=== PATIENT | male | born 1985 | race Caucasian/White ===

== ENCOUNTER 2023-03-18 12:55 | Inpatient (IN) | payer OTHER ==
[2023-03-18 13:30] VITALS: BMI 44.9
[2023-03-18] MEDS ORDERED: MAG HYDROX/AL HYDROX/SIMETH 30 ML UNIT-DOSE CUP PO PRN (15:25)
[2023-03-18] MEDS ORDERED: MAGNESIUM HYDROX 2400MG/30ML ORAL SUSPENSION 30 ML CUP PO PRN (15:25)
[2023-03-18] MEDS ORDERED: BENZOCAINE/MENTHOL (CHLORASEPTIC ) LOZENGE MM PRN (15:25)
[2023-03-18] MEDS ORDERED: NALOXONE HCL 0.4 MG/ML VIAL IM PRN (15:25)
[2023-03-18] MEDS ORDERED: BISMUTH SUBSALICYLATE 524 MG/30 ML PO PRN (15:25)
[2023-03-18] MEDS ORDERED: DICYCLOMINE HCL 10 MG CAPSULE PO PRN (15:25)
[2023-03-18] MEDS ORDERED: LOPERAMIDE HCL 2 MG CAPSULE PO PRN (15:25)
[2023-03-18] MEDS ORDERED: ONDANSETRON *ODT* 4 MG TABLET SL PRN (15:25)
[2023-03-18] MEDS ORDERED: NICOTINE POLACRILEX 2 MG GUM BUC PRN (15:25)
[2023-03-18] MEDS ORDERED: BENZONATATE 200 MG CAPSULE PO PRN (15:25)
[2023-03-18] MEDS ORDERED: ACETAMINOPHEN 325 MG TABLET (FP) PO PRN (15:25)
[2023-03-18] MEDS ORDERED: IBUPROFEN 400 MG TABLET (FP) PO PRN (15:25)
[2023-03-18] MEDS ORDERED: guaiFENesin 600 MG TABLET.ER (FP) PO PRN (15:25)
[2023-03-18] MEDS ORDERED: POLYETHYLENE GLYCOL (HEALTHYLAX) 3350 17 GM PACKET PO PRN (15:25)
[2023-03-18] MEDS ORDERED: NALOXONE HCL (KLOXXADO) 8 MG SPRAY NS PRN (15:25)
[2023-03-18] MEDS: METHOCARBAMOL 500 MG TABLET PO PRN (22:31)
[2023-03-18] MEDS: hydrOXYzine PAMOATE 25 MG CAPSULE (FP) PO PRN (22:31)
[2023-03-18] MEDS: MELATONIN 5 MG TABLETS PO SCH (22:31)
[2023-03-18] MEDS: THIAMINE HCL 100 MG TABLET (FP) PO SCH (22:31)
[2023-03-19] MEDS: PRENATAL VITAMINS W/ FOLIC ACID TABLET (FP) PO SCH (10:21)
[2023-03-19] MEDS: NICOTINE 14 MG/24 HOURS TOPICAL PATCH TD SCH (10:22)
[2023-03-19] MEDS: hydrOXYzine PAMOATE 25 MG CAPSULE (FP) PO PRN ×2 (10:22→22:19)
[2023-03-19] MEDS: METHOCARBAMOL 500 MG TABLET PO PRN ×2 (10:22→22:18)
[2023-03-19 10:25] LABS: HEMATOCRIT 38.2 % (35.4-49); HEMOGLOBIN 12.9 GM/dL (11.7-16.9); MCH 30.9 pg (25.7-33.7); MCHC 33.8 g/dl (32.0-35.9); MEAN CELL VOLUME 91.5 fl (80-96); MEAN PLT VOLUME 7.9 fl (7.5-11.1); PLATELET COUNT 297 10^3/uL (134-434); RBC 4.17 M/mm3 (4.00-5.60); RDW 13.4 % (11.9-15.9); WHITE BLOOD COUNT 5.7 K/mm3 (4.0-10.0)
[2023-03-19] MEDS ORDERED: chlordiazePOXIDE HCL 25 MG CAPSULE PO PRN (10:27)
[2023-03-19 11:05] LABS: CHLORIDE 109 mmol/L (98-107); POTASSIUM 4.2 mmol/L (3.5-5.1); SODIUM 139 mmol/L (136-145)
[2023-03-19 11:11] LABS: CALCIUM 8.4 mg/dL (8.5-10.1)
[2023-03-19 11:12] LABS: ALBUMIN 3.3 g/dl (3.4-5.0); ANION GAP 3 mmol/L (4-13); BLOOD UREA NITROGEN 12.7 mg/dL (7-18); CO2 27 mmol/L (21-32); GLUCOSE,RANDOM 114 mg/dL (74-106)
[2023-03-19 11:14] LABS: CREATININE 0.7 mg/dL (0.55-1.3); SGPT/ALT 21 U/L (13-61)
[2023-03-19 11:15] LABS: BILIRUBIN,TOTAL 0.5 mg/dL (0.2-1); SGOT/AST 16 U/L (15-37); TOT PROT 6.3 g/dl (6.4-8.2)
[2023-03-19 11:16] LABS: ALK PHOS 78 U/L (45-117)
[2023-03-19] MEDS: chlordiazePOXIDE HCL 25 MG CAPSULE PO SCH ×3 (11:40→22:19)
[2023-03-19] MEDS: THIAMINE HCL 100 MG TABLET (FP) PO SCH (22:18)
[2023-03-19] MEDS: lamoTRIgine 25 MG TABLET PO SCH (22:18)
[2023-03-19] MEDS: MELATONIN 5 MG TABLETS PO SCH (22:18)
[2023-03-19] MEDS: traZODone HCL 50 MG TABLET (FP) PO SCH (22:19)
[2023-03-20] MEDS: chlordiazePOXIDE HCL 25 MG CAPSULE PO SCH ×4 (05:52→22:37)
[2023-03-20] MEDS: PRENATAL VITAMINS W/ FOLIC ACID TABLET (FP) PO SCH (10:48)
[2023-03-20] MEDS: NICOTINE 14 MG/24 HOURS TOPICAL PATCH TD SCH (10:50)
[2023-03-20] MEDS: METHOCARBAMOL 500 MG TABLET PO PRN (22:33)
[2023-03-20] MEDS: traZODone HCL 50 MG TABLET (FP) PO SCH (22:33)
[2023-03-20] MEDS: lamoTRIgine 25 MG TABLET PO SCH (22:33)
[2023-03-20] MEDS: MELATONIN 5 MG TABLETS PO SCH (22:33)
[2023-03-20] MEDS: THIAMINE HCL 100 MG TABLET (FP) PO SCH (22:33)
[2023-03-21] MEDS: chlordiazePOXIDE HCL 25 MG CAPSULE PO SCH ×4 (05:55→22:02)
[2023-03-21] MEDS: PRENATAL VITAMINS W/ FOLIC ACID TABLET (FP) PO SCH (10:31)
[2023-03-21] MEDS: NICOTINE 14 MG/24 HOURS TOPICAL PATCH TD SCH (10:32)
[2023-03-21] MEDS: lamoTRIgine 25 MG TABLET PO SCH (22:01)
[2023-03-21] MEDS: MELATONIN 5 MG TABLETS PO SCH (22:01)
[2023-03-21] MEDS: THIAMINE HCL 100 MG TABLET (FP) PO SCH (22:01)
[2023-03-21] MEDS: traZODone HCL 50 MG TABLET (FP) PO SCH (22:01)
[2023-03-22] MEDS ORDERED: chlordiazePOXIDE HCL 10 MG CAPSULE PO PRN
[2023-03-22] MEDS: chlordiazePOXIDE HCL 10 MG CAPSULE PO SCH ×4 (05:55→22:07)
[2023-03-22] MEDS: PRENATAL VITAMINS W/ FOLIC ACID TABLET (FP) PO SCH (10:21)
[2023-03-22] MEDS: NICOTINE 14 MG/24 HOURS TOPICAL PATCH TD SCH (10:22)
[2023-03-22] MEDS: lamoTRIgine 25 MG TABLET PO SCH (22:06)
[2023-03-22] MEDS: THIAMINE HCL 100 MG TABLET (FP) PO SCH (22:06)
[2023-03-22] MEDS: traZODone HCL 50 MG TABLET (FP) PO SCH (22:06)
[2023-03-22] MEDS: MELATONIN 5 MG TABLETS PO SCH (23:00)
[2023-03-23] MEDS: chlordiazePOXIDE HCL 10 MG CAPSULE PO SCH ×2 (05:35→17:49)
[2023-03-23] MEDS: PRENATAL VITAMINS W/ FOLIC ACID TABLET (FP) PO SCH (10:12)
[2023-03-23] MEDS: NICOTINE 14 MG/24 HOURS TOPICAL PATCH TD SCH (10:13)
[2023-03-23] MEDS: IBUPROFEN 600 MG TABLET (FP) PO PRN (17:50)
[2023-03-23] MEDS: lamoTRIgine 25 MG TABLET PO SCH (22:05)
[2023-03-23] MEDS: traZODone HCL 50 MG TABLET (FP) PO SCH (22:05)
[2023-03-23] MEDS: THIAMINE HCL 100 MG TABLET (FP) PO SCH (22:05)
[2023-03-23] MEDS: MELATONIN 5 MG TABLETS PO SCH (22:06)
[2023-03-24] MEDS ORDERED: chlordiazePOXIDE HCL 10 MG CAPSULE PO ONE (05:00)
[2023-03-24] MEDS: IBUPROFEN 600 MG TABLET (FP) PO PRN (08:44)
[2023-03-24 09:08] VITALS: RESP 17
[2023-03-24] MEDS: PRENATAL VITAMINS W/ FOLIC ACID TABLET (FP) PO SCH (10:05)
[2023-03-24] MEDS: NICOTINE 14 MG/24 HOURS TOPICAL PATCH TD SCH (10:06)
[2023-03-24 12:41] VITALS: BP 127/80; PULSE 85; TEMP 98.3
== END 2023-03-24 15:24 | disposition other institution (70) | DRG 775 ==
LOC: YASAS 12:55 → Y3N 16:06
PROVIDERS: ADMIT Allergy & Immunology; ATTEND Surgery
PROC: HZ2ZZZZ Detoxification Services for Substance Abuse Treatment (ICD-10-PCS; principal; 2023-03-18)
DX: F10.230 Alcohol dependence with withdrawal, uncomplicated (principal); F17.210 Nicotine dependence, cigarettes, uncomplicated; F31.9 Bipolar disorder, unspecified; F41.9 Anxiety disorder, unspecified; E66.01 Morbid (severe) obesity due to excess calories; Z68.41 Body mass index [BMI] 40.0-44.9, adult
CPT/HCPCS: 36415; 80053; 80307; 85027; 86780; 87635; 87811; 93005; 93010

== ENCOUNTER 2023-03-24 15:33 | Inpatient (IN) | payer OTHER ==
[2023-03-24] MEDS ORDERED: POLYETHYLENE GLYCOL (HEALTHYLAX) 3350 17 GM PACKET PO PRN (16:54)
[2023-03-24] MEDS ORDERED: P-EPHED 60MG/TRIPROLIDI 2.5MG TABLET PO PRN (16:54)
[2023-03-24] MEDS ORDERED: IBUPROFEN 400 MG TABLET (FP) PO PRN (16:54)
[2023-03-24] MEDS ORDERED: MAGNESIUM HYDROX 2400MG/30ML ORAL SUSPENSION 30 ML CUP PO PRN (16:54)
[2023-03-24] MEDS ORDERED: MAG HYDROX/AL HYDROX/SIMETH 30 ML UNIT-DOSE CUP PO PRN (16:54)
[2023-03-24] MEDS ORDERED: ACETAMINOPHEN 325 MG TABLET (FP) PO PRN (16:54)
[2023-03-24] MEDS ORDERED: BENZONATATE 200 MG CAPSULE PO PRN (16:54)
[2023-03-24] MEDS ORDERED: NICOTINE POLACRILEX 2 MG GUM BUC PRN (16:54)
[2023-03-24] MEDS ORDERED: guaiFENesin 600 MG TABLET.ER (FP) PO PRN (16:54)
[2023-03-24] MEDS ORDERED: LOPERAMIDE HCL 2 MG CAPSULE PO PRN (16:54)
[2023-03-24] MEDS: MELATONIN 5 MG TABLETS PO SCH (21:38)
[2023-03-24] MEDS: traZODone HCL 50 MG TABLET (FP) PO SCH (21:38)
[2023-03-24] MEDS: THIAMINE HCL 100 MG TABLET (FP) PO SCH (21:38)
[2023-03-24] MEDS ORDERED: lamoTRIgine 25 MG TABLET PO SCH (22:00)
[2023-03-25] MEDS: PRENATAL VITAMINS W/ FOLIC ACID TABLET (FP) PO SCH (09:35)
[2023-03-25] MEDS: MELATONIN 5 MG TABLETS PO SCH (21:14)
[2023-03-25] MEDS: THIAMINE HCL 100 MG TABLET (FP) PO SCH (21:14)
[2023-03-25] MEDS: traZODone HCL 50 MG TABLET (FP) PO SCH (21:14)
[2023-03-25] MEDS: lamoTRIgine 25 MG TABLET PO SCH (21:15)
[2023-03-26] MEDS: BENZOCAINE/MENTHOL (CHLORASEPTIC ) LOZENGE MM PRN (06:02)
[2023-03-26] MEDS: lamoTRIgine 25 MG TABLET PO SCH ×2 (09:56→21:11)
[2023-03-26] MEDS: PRENATAL VITAMINS W/ FOLIC ACID TABLET (FP) PO SCH (09:56)
[2023-03-26] MEDS: MELATONIN 5 MG TABLETS PO SCH (21:11)
[2023-03-26] MEDS: traZODone HCL 50 MG TABLET (FP) PO SCH (21:11)
[2023-03-26] MEDS: THIAMINE HCL 100 MG TABLET (FP) PO SCH (21:11)
[2023-03-27] MEDS: BENZOCAINE/MENTHOL (CHLORASEPTIC ) LOZENGE MM PRN (06:37)
[2023-03-27] MEDS: lamoTRIgine 25 MG TABLET PO SCH ×2 (09:51→21:54)
[2023-03-27] MEDS: PRENATAL VITAMINS W/ FOLIC ACID TABLET (FP) PO SCH (09:51)
[2023-03-27] MEDS ORDERED: FLU VACCINE (FLULAVAL) PF 60 MCG/0.5 ML SYRINGE 2023-2024 IM ONE (14:00)
[2023-03-27] MEDS: traZODone HCL 50 MG TABLET (FP) PO SCH (21:54)
[2023-03-27] MEDS: THIAMINE HCL 100 MG TABLET (FP) PO SCH (21:54)
[2023-03-27] MEDS: MELATONIN 5 MG TABLETS PO SCH (21:55)
[2023-03-27] MEDS: CEPHALEXIN MONOHYDRATE 500 MG CAPSULE (UD) PO SCH (21:55)
[2023-03-28] MEDS: IBUPROFEN 600 MG TABLET (FP) PO PRN ×2 (06:26→21:52)
[2023-03-28] MEDS: lamoTRIgine 25 MG TABLET PO SCH ×2 (10:15→21:53)
[2023-03-28] MEDS: PRENATAL VITAMINS W/ FOLIC ACID TABLET (FP) PO SCH (10:15)
[2023-03-28] MEDS: CEPHALEXIN MONOHYDRATE 500 MG CAPSULE (UD) PO SCH ×2 (10:16→21:53)
[2023-03-28] MEDS: MELATONIN 5 MG TABLETS PO SCH (21:53)
[2023-03-28] MEDS: traZODone HCL 50 MG TABLET (FP) PO SCH (21:53)
[2023-03-28] MEDS: THIAMINE HCL 100 MG TABLET (FP) PO SCH (21:53)
[2023-03-29] MEDS: lamoTRIgine 25 MG TABLET PO SCH ×2 (10:19→21:42)
[2023-03-29] MEDS: PRENATAL VITAMINS W/ FOLIC ACID TABLET (FP) PO SCH (10:19)
[2023-03-29] MEDS: CEPHALEXIN MONOHYDRATE 500 MG CAPSULE (UD) PO SCH ×2 (10:19→21:42)
[2023-03-29] MEDS: MELATONIN 5 MG TABLETS PO SCH (21:42)
[2023-03-29] MEDS: traZODone HCL 50 MG TABLET (FP) PO SCH (21:42)
[2023-03-29] MEDS: THIAMINE HCL 100 MG TABLET (FP) PO SCH (21:42)
[2023-03-29] MEDS: IBUPROFEN 600 MG TABLET (FP) PO PRN (21:43)
[2023-03-30] MEDS: PRENATAL VITAMINS W/ FOLIC ACID TABLET (FP) PO SCH (09:42)
[2023-03-30] MEDS: CEPHALEXIN MONOHYDRATE 500 MG CAPSULE (UD) PO SCH ×2 (09:42→21:28)
[2023-03-30] MEDS: lamoTRIgine 25 MG TABLET PO SCH ×2 (09:42→21:27)
[2023-03-30] MEDS: traZODone HCL 50 MG TABLET (FP) PO SCH (21:27)
[2023-03-30] MEDS: MELATONIN 5 MG TABLETS PO SCH (21:28)
[2023-03-30] MEDS: THIAMINE HCL 100 MG TABLET (FP) PO SCH (21:28)
[2023-03-30] MEDS: IBUPROFEN 600 MG TABLET (FP) PO PRN (21:28)
[2023-03-31] MEDS: lamoTRIgine 25 MG TABLET PO SCH ×2 (09:29→21:25)
[2023-03-31] MEDS: PRENATAL VITAMINS W/ FOLIC ACID TABLET (FP) PO SCH (09:29)
[2023-03-31] MEDS: CEPHALEXIN MONOHYDRATE 500 MG CAPSULE (UD) PO SCH ×2 (09:29→21:25)
[2023-03-31 11:43] LABS: ALBUMIN 3.8 g/dl (3.4-5.0)
[2023-03-31 11:46] LABS: BILIRUBIN,DIRECT 0.2 mg/dL (0.0-0.2)
[2023-03-31 11:48] LABS: BILIRUBIN,TOTAL 0.5 mg/dL (0.2-1); TOT PROT 7.3 g/dl (6.4-8.2)
[2023-03-31] MEDS: MELATONIN 5 MG TABLETS PO SCH (21:25)
[2023-03-31] MEDS: THIAMINE HCL 100 MG TABLET (FP) PO SCH (21:25)
[2023-03-31] MEDS: traZODone HCL 50 MG TABLET (FP) PO SCH (21:25)
[2023-04-01] MEDS: BENZOCAINE/MENTHOL (CHLORASEPTIC ) LOZENGE MM PRN (06:10)
[2023-04-01] MEDS: PRENATAL VITAMINS W/ FOLIC ACID TABLET (FP) PO SCH (09:50)
[2023-04-01] MEDS: lamoTRIgine 25 MG TABLET PO SCH ×2 (09:50→21:26)
[2023-04-01] MEDS: CEPHALEXIN MONOHYDRATE 500 MG CAPSULE (UD) PO SCH (09:50)
[2023-04-01] MEDS: THIAMINE HCL 100 MG TABLET (FP) PO SCH (21:26)
[2023-04-01] MEDS: traZODone HCL 50 MG TABLET (FP) PO SCH (21:26)
[2023-04-01] MEDS: MELATONIN 5 MG TABLETS PO SCH (21:26)
[2023-04-02] MEDS: COLLOIDAL OATMEAL 1 BAR EACH TP PRN (07:02)
[2023-04-02] MEDS: lamoTRIgine 25 MG TABLET PO SCH ×2 (10:09→21:47)
[2023-04-02] MEDS: PRENATAL VITAMINS W/ FOLIC ACID TABLET (FP) PO SCH (10:09)
[2023-04-02] MEDS: MELATONIN 5 MG TABLETS PO SCH (21:47)
[2023-04-02] MEDS: traZODone HCL 50 MG TABLET (FP) PO SCH (21:47)
[2023-04-02] MEDS: THIAMINE HCL 100 MG TABLET (FP) PO SCH (21:47)
[2023-04-03] MEDS: PRENATAL VITAMINS W/ FOLIC ACID TABLET (FP) PO SCH (09:40)
[2023-04-03] MEDS: lamoTRIgine 25 MG TABLET PO SCH ×2 (09:41→21:32)
[2023-04-03] MEDS ORDERED: SODIUM CHLORIDE NASAL SPRAY 44 ML BOTTLE NS PRN (14:50)
[2023-04-03] MEDS: traZODone HCL 50 MG TABLET (FP) PO SCH (21:31)
[2023-04-03] MEDS: MELATONIN 5 MG TABLETS PO SCH (21:31)
[2023-04-03] MEDS: THIAMINE HCL 100 MG TABLET (FP) PO SCH (21:31)
[2023-04-04] MEDS: BENZOCAINE/MENTHOL (CHLORASEPTIC ) LOZENGE MM PRN (06:47)
[2023-04-04] MEDS: lamoTRIgine 25 MG TABLET PO SCH ×2 (10:01→21:27)
[2023-04-04] MEDS: PRENATAL VITAMINS W/ FOLIC ACID TABLET (FP) PO SCH (10:01)
[2023-04-04] MEDS: THIAMINE HCL 100 MG TABLET (FP) PO SCH (21:27)
[2023-04-04] MEDS: MELATONIN 5 MG TABLETS PO SCH (21:27)
[2023-04-04] MEDS: traZODone HCL 50 MG TABLET (FP) PO SCH (21:27)
[2023-04-05] MEDS: PRENATAL VITAMINS W/ FOLIC ACID TABLET (FP) PO SCH (09:46)
[2023-04-05] MEDS: THIAMINE HCL 100 MG TABLET (FP) PO SCH (21:19)
[2023-04-05] MEDS: lamoTRIgine 25 MG TABLET PO SCH (21:19)
[2023-04-05] MEDS: MELATONIN 5 MG TABLETS PO SCH (21:19)
[2023-04-05] MEDS: traZODone HCL 50 MG TABLET (FP) PO SCH (21:20)
[2023-04-06] MEDS: PRENATAL VITAMINS W/ FOLIC ACID TABLET (FP) PO SCH (09:44)
[2023-04-06] MEDS: IBUPROFEN 600 MG TABLET (FP) PO PRN (09:45)
[2023-04-06] MEDS: traZODone HCL 50 MG TABLET (FP) PO SCH (21:16)
[2023-04-06] MEDS: lamoTRIgine 25 MG TABLET PO SCH (21:16)
[2023-04-06] MEDS: THIAMINE HCL 100 MG TABLET (FP) PO SCH (21:16)
[2023-04-06] MEDS: MELATONIN 5 MG TABLETS PO SCH (23:27)
[2023-04-07] MEDS: PRENATAL VITAMINS W/ FOLIC ACID TABLET (FP) PO SCH (10:01)
[2023-04-07] MEDS: traZODone HCL 50 MG TABLET (FP) PO SCH (21:25)
[2023-04-07] MEDS: lamoTRIgine 25 MG TABLET PO SCH (21:25)
[2023-04-07] MEDS: THIAMINE HCL 100 MG TABLET (FP) PO SCH (21:25)
[2023-04-07] MEDS: MELATONIN 5 MG TABLETS PO SCH (21:25)
[2023-04-08] MEDS: COLLOIDAL OATMEAL 1 BAR EACH TP PRN (08:26)
[2023-04-08] MEDS: PRENATAL VITAMINS W/ FOLIC ACID TABLET (FP) PO SCH (09:51)
[2023-04-08] MEDS: THIAMINE HCL 100 MG TABLET (FP) PO SCH (21:20)
[2023-04-08] MEDS: traZODone HCL 50 MG TABLET (FP) PO SCH (21:20)
[2023-04-08] MEDS: MELATONIN 5 MG TABLETS PO SCH (21:20)
[2023-04-08] MEDS: lamoTRIgine 25 MG TABLET PO SCH (21:20)
[2023-04-09 06:57] VITALS: RESP 18
[2023-04-09] MEDS: PRENATAL VITAMINS W/ FOLIC ACID TABLET (FP) PO SCH (09:56)
[2023-04-09] MEDS: THIAMINE HCL 100 MG TABLET (FP) PO SCH (21:33)
[2023-04-09] MEDS: traZODone HCL 50 MG TABLET (FP) PO SCH (21:33)
[2023-04-09] MEDS: MELATONIN 5 MG TABLETS PO SCH (21:33)
[2023-04-09] MEDS: lamoTRIgine 25 MG TABLET PO SCH (21:33)
[2023-04-10] MEDS: PRENATAL VITAMINS W/ FOLIC ACID TABLET (FP) PO SCH (09:51)
[2023-04-10] MEDS: IBUPROFEN 600 MG TABLET (FP) PO PRN (19:02)
[2023-04-10] MEDS: MELATONIN 5 MG TABLETS PO SCH (21:26)
[2023-04-10] MEDS: THIAMINE HCL 100 MG TABLET (FP) PO SCH (21:26)
[2023-04-10] MEDS: lamoTRIgine 25 MG TABLET PO SCH (21:26)
[2023-04-10] MEDS: traZODone HCL 50 MG TABLET (FP) PO SCH (21:26)
[2023-04-11] MEDS: PRENATAL VITAMINS W/ FOLIC ACID TABLET (FP) PO SCH (09:55)
[2023-04-11] MEDS: lamoTRIgine 25 MG TABLET PO SCH (22:02)
[2023-04-11] MEDS: traZODone HCL 50 MG TABLET (FP) PO SCH (22:02)
[2023-04-11] MEDS: THIAMINE HCL 100 MG TABLET (FP) PO SCH (22:02)
[2023-04-11] MEDS: MELATONIN 5 MG TABLETS PO SCH (22:02)
[2023-04-11] MEDS: IBUPROFEN 600 MG TABLET (FP) PO PRN (22:03)
[2023-04-12] MEDS: PRENATAL VITAMINS W/ FOLIC ACID TABLET (FP) PO SCH (09:57)
[2023-04-12] MEDS: MELATONIN 5 MG TABLETS PO SCH (21:47)
[2023-04-12] MEDS: traZODone HCL 50 MG TABLET (FP) PO SCH (21:47)
[2023-04-12] MEDS: lamoTRIgine 25 MG TABLET PO SCH (21:47)
[2023-04-12] MEDS: THIAMINE HCL 100 MG TABLET (FP) PO SCH (21:47)
[2023-04-12] MEDS: IBUPROFEN 600 MG TABLET (FP) PO PRN (21:48)
[2023-04-13] MEDS: PRENATAL VITAMINS W/ FOLIC ACID TABLET (FP) PO SCH (10:00)
[2023-04-13] MEDS: MELATONIN 5 MG TABLETS PO SCH (21:38)
[2023-04-13] MEDS: lamoTRIgine 25 MG TABLET PO SCH (21:39)
[2023-04-13] MEDS: THIAMINE HCL 100 MG TABLET (FP) PO SCH (21:39)
[2023-04-13] MEDS: traZODone HCL 50 MG TABLET (FP) PO SCH (21:39)
[2023-04-14] MEDS: PRENATAL VITAMINS W/ FOLIC ACID TABLET (FP) PO SCH (09:54)
[2023-04-14 13:26] LABS: HIV INTERPRETATION NEGATIVE (NEGATIVE)
[2023-04-14] MEDS: traZODone HCL 50 MG TABLET (FP) PO SCH (21:27)
[2023-04-14] MEDS: MELATONIN 5 MG TABLETS PO SCH (21:27)
[2023-04-14] MEDS: lamoTRIgine 25 MG TABLET PO SCH (21:27)
[2023-04-14] MEDS: IBUPROFEN 600 MG TABLET (FP) PO PRN (21:27)
[2023-04-14] MEDS: THIAMINE HCL 100 MG TABLET (FP) PO SCH (21:27)
[2023-04-15] MEDS: PRENATAL VITAMINS W/ FOLIC ACID TABLET (FP) PO SCH (09:34)
[2023-04-15] MEDS: IBUPROFEN 600 MG TABLET (FP) PO PRN (21:20)
[2023-04-15] MEDS: lamoTRIgine 25 MG TABLET PO SCH (21:20)
[2023-04-15] MEDS: THIAMINE HCL 100 MG TABLET (FP) PO SCH (21:20)
[2023-04-15] MEDS: MELATONIN 5 MG TABLETS PO SCH (21:20)
[2023-04-15] MEDS: traZODone HCL 50 MG TABLET (FP) PO SCH (21:20)
[2023-04-16] MEDS: COLLOIDAL OATMEAL 1 BAR EACH TP PRN (06:48)
[2023-04-16 07:00] VITALS: BP 138/87; PULSE 73; TEMP 97.7
[2023-04-16] MEDS: PRENATAL VITAMINS W/ FOLIC ACID TABLET (FP) PO SCH (09:45)
== END 2023-04-16 10:08 | disposition home or self-care (01) | DRG 772 ==
LOC: YASAS 15:33 → Y5N 15:40
PROVIDERS: ADMIT Allergy & Immunology; ATTEND Psychiatry & Neurology Pain Medicine
PROC: HZ42ZZZ Group Counseling for Substance Abuse Treatment, Cognitive-Behavioral (ICD-10-PCS; principal; 2023-03-24)
DX: F10.20 Alcohol dependence, uncomplicated (principal); F17.210 Nicotine dependence, cigarettes, uncomplicated; F31.9 Bipolar disorder, unspecified; F41.9 Anxiety disorder, unspecified; E66.01 Morbid (severe) obesity due to excess calories; Z68.42 Body mass index [BMI] 45.0-49.9, adult
CPT/HCPCS: 36415; 80076; 83036; 87389; 90686; G0008